=== PATIENT | female | born 1960 | race Caucasian/White ===

== ENCOUNTER → 2023-04-05 12:31 | Outpatient (CLI) | payer BC, SELFPAY ==
--- NOTE | 2023-04-05 | DI.ECHO.S_ITS ---
[place] [facility]---------+ [facility] +---------+ : : [address] : : : : [id number] : : : : Phone: [phone]---------+ Echocardiogram Report + + :Name: DALE CANHCOLA Study Date: 04/05/2023 Height: 66 in : :[facility] ReadingLocation: Weight: 173 lb : : Gender: Female BSA: 1.9 m2 : :: 1960 Age: 62 yrs BP: 124/82 mmHg: :Reason For Study: PALPITATIONS : :Ordering Physician: SHANA, : :NIKKI Performed By: Chris Singh : :Referring: NIKKI SALDANA : + + Interpretation Summary The left ventricle is normal in size and wall thickness. The left ventricular ejection fraction is normal. The ejection fraction is estimated to be 55-60%. The right ventricle is mildly dilated. The right ventricular systolic function is normal. No significant valvular pathology seen. The IVC is of normal diameter and collapses greater than 50% with a sniff. This suggests a low right atrial pressure of 3 mm Hg. Procedure: A two-dimensional transthoracic echocardiogram with color flow and Doppler was performed. The study quality was technically adequate. There is no prior echocardiogram noted for this patient. The patient was in normal sinus rhythm during the exam. The heart rate ranged between 60-74 bpm during the study. Left Ventricle: The left ventricle is normal in size and wall thickness. There is no thrombus. The ejection fraction is estimated to be 55-60%. The left ventricular ejection fraction is normal. There are no focal wall motion abnormalities. Diastolic parameters suggest a relaxation abnormality of the left ventricle, consistent with probable normal filling pressures. Right Ventricle: The right ventricle is mildly dilated. The right ventricular systolic function is normal. Atria: The left atrium is mildly dilated. Right atrial size is normal. The interatrial septum grossly appears intact with no obvious evidence for an atrial septal defect. Mitral Valve: The mitral valve leaflets appear borderline thickened, but open well. The mitral valve chordae are thickened and/or calcified. There is no mitral valve stenosis. There is trace mitral regurgitation. Aortic Valve: The aortic valve is trileaflet. There is mild aortic valve sclerosis. There is no aortic valve stenosis. There is trace aortic regurgitation. Tricuspid Valve: The tricuspid valve is normal in structure and function. There is no tricuspid stenosis. The right ventricular systolic pressure is estimated to be at least 21 mmHg based on an estimated right atrial pressure of 3 mm Hg. Trivial to mild TR. Pulmonic Valve: The pulmonic valve is not well visualized. There is no pulmonic valvular stenosis. There is no pulmonic valvular regurgitation. Great Vessels: The aortic root is mildly dilated. The dimensions of the ascending aorta are normal. The IVC is of normal diameter and collapses greater than 50% with a sniff. This suggests a low right atrial pressure of 3 mm Hg. Pericardium/ Pleura There is no pericardial effusion. There is no pleural effusion. MMode/2D Measurements & Calculations LVIDd: 4.8 cm LVOT diam: 2.3 cm LVIDs: 3.2 cm Ao root diam: 3.7 cm FS: 33.1 % asc Aorta Diam: 3.5 cm IVSd: 0.86 cm Ao Arch Diam (Prox Trans): 3.4 cm LVPWd: 1.00 cm LV landin. diameter/BSA (cm/m^2): 2.5 LV sys. diameter/BSA (cm/m^2): 1.7 LA A2 area: 19.5 cm2 RA long axis: 4.7 cm LA A4 area: 19.8 cm2 RA area: 18.1 cm2 LA length (vol): 5.0 cm RA vol: 59.2 ml LA vol: 64.9 ml RA : 31.5 ml/m2 LA vol index: 34.5 ml/m2 IVC diam: 2.0 cm RVD1 (basal): 4.6 cm RVD2 (mid): 3.4 cm TAPSE: 2.9 cm Doppler Measurements & Calculations Ao V2 max: 167.6 cm/sec LVOT Max Milton: 165.4 cm/sec Ao V2 mean: 126.8 cm/sec LV V1 max P.9 mmHg Ao max P.2 mmHg LV V1 VTI: 34.3 cm Ao mean P.0 mmHg ART(I,D): 3.6 cm2 Ao V2 VTI: 39.6 cm ART(V,D): 4.1 cm2 sev ratio: 0.87 ART indexed to BSA (cm^2/m^2): 1.9 MV E max milton: 53.2 cm/sec TR max milton: 212.9 cm/sec MV A max milton: 80.5 cm/sec TR max P.1 mmHg MV E/A: 0.66 PA V2 max: 90.8 cm/sec Med Peak E' Milton: 7.5 cm/sec PA V2 mean: 60.9 cm/sec E/E' med: 7.1 PA mean P.7 mmHg Lat Peak E' Milton: 9.0 cm/sec PA pr(Accel): 39.6 mmHg E/E' lat: 5.9 E/e' average: 6.5 MV dec time: 0.27 sec SV(LVOT): 143.6 ml Reading Physician:05:21 PM
== END ==
LOC: ECHO 12:33
PROVIDERS: Referring Provider Registered Nurse; Visit Provider Registered Nurse
DX: I34.81 Nonrheumatic mitral (valve) annulus calcification (principal); I77.810 Thoracic aortic ectasia; R00.2 Palpitations
CPT/HCPCS: 93306

== ENCOUNTER → 2023-05-14 10:55 | Outpatient (CLI) | payer BC, SELFPAY ==
[2023-05-14 12:55] LABS: Free T4, Direct Thyroxine 0.84 ng/dL (0.78-2.19)
[2023-05-14 13:09] LABS: Thyroid Stimulating Hormone 3.75 uIU/mL (0.47-4.68)
== END ==
PROVIDERS: Referring Provider Internal Medicine Cardiovascular Disease; Visit Provider Internal Medicine Cardiovascular Disease
DX: R00.2 Palpitations (principal)
CPT/HCPCS: 36415; 84439; 84443

== ENCOUNTER → 2023-08-26 08:28 | Outpatient (CLI) | payer MEDICARE, SELFPAY ==
--- NOTE | 2023-08-26 08:30 | DI.US.S_ITS ---
PROCEDURE: US CAROTID DOPPLER BI INDICATIONS: SOB / VISION CHANGES TECHNIQUE: Color and pulse Doppler interrogation was performed of both carotid systems, with image documentation and velocity measurements. COMPARISON: None. FINDINGS: Stenosis calculations are based on SRU (Society of Radiologists in Ultrasound) criteria. The flow velocities and the arterial waveforms are normal within both carotid arterial systems. Minimal atherosclerotic plaque is seen on both sides. The estimated degree of internal carotid artery stenosis is less than 50%. Antegrade flow is confirmed within both vertebral arteries. IMPRESSION: No hemodynamically significant stenosis is seen. Dictated by: Jose R Owens M.D. on 08/26/2023 at 13:11 Approved by: Jose R Owens M.D. on 08/26/2023 at 13:12
== END ==
PROVIDERS: PCP Registered Nurse; Referring Provider Internal Medicine Cardiovascular Disease; Visit Provider Internal Medicine Cardiovascular Disease
DX: H53.9 Unspecified visual disturbance
CPT/HCPCS: 93880

== ENCOUNTER → 2023-08-27 15:18 | Outpatient (CLI) | payer MEDICARE, SELFPAY ==
--- NOTE | 2023-08-29 22:48 | DI.NM.S_ITS ---
DATE OF SERVICE: 08/27/2023 PROCEDURE: Exercise perfusion study. INDICATIONS: Shortness of breath, palpitation, hypertension, hyperlipidemia. RADIOPHARMACEUTICAL: 25.0 millicurie technetium-99m Myoview IV was injected at stress and 23.6 millicurie technetium-99m Myoview IV was injected at rest. CARDIAC STRESS: The patient underwent exercise perfusion study under the supervision of an attending staff. The patient walked on Kaushik protocol for 6 minutes and 34 seconds, achieved 7.3 METS of workload, 107% of target heart rate with maximum heart rate 166 beats per minute. Peak blood pressure 166/90. Baseline rhythm was sinus. During stress, no convincing ischemic changes seen. Occasional PVCs with rare ventricular couplets. No ventricular tachycardia. No chest pain. Had shortness of breath. DENISE positive 15%. RAW DATA: Breast shadow seen. There is increased subdiaphragmatic activity. GATED STUDY: Stress LV ejection fraction is 69% without any obvious wall motion abnormalities. Resting end-diastolic volume 103 mL. TID ratio 0.98, which is within normal limits. MYOCARDIAL PERFUSION SCAN: Stress supine, resting supine and stress prone images were compared to each other. Stress supine and resting supine images revealed moderate-size, mildly decreased perfusion of anterior wall, which got completely resolved during stress prone images suggestive of breast tissue attenuation artifact. CONCLUSION: This is a normal myocardial perfusion study with evidence of breast tissue attenuation artifact, which got resolved during prone images. Preserved left ventricular function. Diminished exercise tolerance. Normal hemodynamic response. No anginal symptoms. No complex significant arrhythmias. Overall, low-risk exercise perfusion study. Salima Paula - TAURUS/jose/SKB doc#: [id number]/job#: [id number] dd: 08/29/2023 16:49:00 dt: 08/29/2023 21:44:00 DICTATING MD/COPIES TO: Deedee Delatorre MD COPIES MNE: SUMAN;
== END ==
PROVIDERS: PCP Registered Nurse; Referring Provider Internal Medicine Cardiovascular Disease; Visit Provider Internal Medicine Cardiovascular Disease
DX: R06.02 Shortness of breath (principal); I10 Essential (primary) hypertension; R00.2 Palpitations
CPT/HCPCS: 78452; 93017; A9502

== ENCOUNTER → 2024-08-25 08:21 | Outpatient (CLI) | payer MEDICARE, SELFPAY ==
[2024-08-25 09:01] LABS: Add Manual Diff / Slide Review NO; Hematocrit 36.6 % (36-46); Hemoglobin 12.4 g/dL (12.0-16.0); Lymphocytes Absolute Auto 1300 /uL (1100-4500); Mean Corpuscular HGB Conc 33.9 % (30-36); Mean Corpuscular Hemoglobin 31.9 PG (26-34); Mean Corpuscular Volume 94.1 fL (80-100); Platelet Count 201 X10^3/uL (150-400)
[2024-08-25 09:29] LABS: Alanine Aminotransferase 16 IU/L (<35); Albumin 4.6 g/dL (3.5-5.0); Albumin Globulin Ratio 1.9 (1.0-2.8); Alkaline Phosphatase 36 U/L (38-126); Blood Urea Nitrogen 23 mg/dL (7-17); Calcium 9.8 mg/dL (8.4-10.2); Carbon Dioxide 29 mmol/L (22-32); Chloride 103 mmol/L (98-107); Cholesterol 266 mg/dL (140-199); Estimated Glomerular Filt Rate > 60 mL/min (>60); Globulin 2.4 g/dL (1.7-4.1); Glucose 95 mg/dL (70-99); HDL Cholesterol 90 mg/dL (40-60); HEMOLYSIS < 15 (0-50); Potassium 4.9 mmol/L (3.4-5.1); Sodium 138 mmol/L (137-145); Total Protein 7.0 g/dL (6.3-8.2); Triglycerides 66 mg/dL (35-150)
[2024-08-25 10:00] LABS: TSH w/ Reflex to FT4 1.29 uIU/mL (0.47-4.68)
[2024-08-28 21:07] LABS: ANA Screen, IFA Negative (.)
== END ==
PROVIDERS: PCP Family Medicine; Referring Provider Family Medicine; Visit Provider Family Medicine
DX: M32.9 Systemic lupus erythematosus, unspecified (principal); R91.8 Other nonspecific abnormal finding of lung field
CPT/HCPCS: 36415; 80053; 80061; 84443; 85025; 86038; 86140

== ENCOUNTER → 2024-11-25 10:53 | Outpatient (CLI) | payer MEDICARE, SELFPAY ==
--- NOTE | 2024-11-25 10:56 | DI.RAD.S_ITS ---
PROCEDURE: XR DEXA AXIAL SKELETON INDICATIONS: annual screenings COMPARISON: None. FINDINGS: Lumbar Spine: Bone mineral density 1.16 g/cm2, T score 1.1,. Left Femoral Neck: Bone mineral density 0.84 g/cm2, T score -0.1. Left Hip: Bone mineral density 1.0 g/cm2, T score 0.6, Fracture Risk Calculation (when applicable): Not applicable (T score greater or equal to -1.0 to: NORMAL) (T score from -1.1 to -2.4: OSTEOPENIA) (T score less than or equal to -2.5: OSTEOPOROSIS) IMPRESSION: T-scores are within normal limits Follow-up guidelines as follows: Osteoporosis: Consider a repeat DEXA and Vertebral Fracture Assessment (VFA) exam in 2 years or sooner if medically necessary, to reassess this patient's status. Osteopenia: Consider a repeat DEXA in 2-3 years to reassess this patient's status, or if there is a new clinical indication. Normal: Consider a repeat DEXA in 5 years or sooner, or if there is a new clinical indication. All treatment decisions require clinical judgment and consideration of individual patient factors, including patient preferences, comorbidities, previous drug use, risk factors not captured in the FRAX model (e.g., frailty, falls, vitamin D deficiency, increased bone turnover, interval significant decline in bone density ) and possible under- or over-estimation of fracture risk by FRAX. In addition, the NOF Guide recommends that FDA-approved medical therapies be considered in postmenopausal women and men age >= 50 years with a: * Hip or vertebral (clinical or morphometric) fracture * T-score of <=-2.5 at the spine or hip * Ten-year fracture probability by FRAX of >= 3% for hip fracture or >=20% for major osteoporotic fracture. Dictated by: Juan Fermin M.D. on 11/25/2024 at 16:42 Approved by: Juan Fermin M.D. on 11/25/2024 at 16:42
--- NOTE | 2024-11-25 10:56 | DI.MG.S_ITS ---
MM screening mammo BI: 11/25/2024. BI-RADS: 1 CLINICAL: 64-year old female for bilateral screening mammogram. Tyrer-Cuzick lifetime risk of 11.7%. Current reported family history of breast cancer: sister. PRIOR EXAMS: 10/16/2017, 08/17/2015, 02/16/2013. MAMMOGRAPHY TECHNIQUE: 2D and 3D (tomosynthesis) digital mammographic views obtained, with additional images as needed for full coverage. Current study was also evaluated with a Computer Aided Detection (CAD) system. DENSITY B. There are scattered areas of fibroglandular density. MAMMOGRAPHY FINDINGS Bilateral: No suspicious mass, asymmetry, microcalcification, or other abnormality seen. IMPRESSION: * No evidence of malignancy. RECOMMENDATIONS Bilateral * Annual screening mammography. OVERALL ASSESSMENT CATEGORY BI-RADS-1: Negative. The [employer] recommends annual screening mammography beginning at age 40 for women with average risk of breast cancer. ELECTRONICALLY SIGNED: Colleen Jaramillo M.D. on 11/28/2024 at 01:18:14 PM PT Interpreting Station ID: [id number]
== END ==
LOC: MAMMO 10:54
PROVIDERS: PCP Family Medicine; Referring Provider Family Medicine; Visit Provider Family Medicine
DX: Z78.0 Asymptomatic menopausal state (principal); Z12.31 Encounter for screening mammogram for malignant neoplasm of breast; Z80.3 Family history of malignant neoplasm of breast
CPT/HCPCS: 77063; 77067; 77080